=== PATIENT | male | born 1990 | race Caucasian/White ===

== ENCOUNTER 2024-08-24 08:03 | Emergency (ER) | payer OTHER, SELFPAY ==
[2024-08-24] VITALS (7 sets, daily range): BP systolic 129–144; BP diastolic 66–84; PULSE 38–59; RESP 10–23; TEMP 36.6–36.7; O2SAT 96–98; BMI 39.9
--- NOTE | 2024-08-24 08:18 | EX.ED.DYSGE1 ---
HPI History of Present Illness Chief Complaint: Chest Pain Informant: patient Onset/Context/Timing Onset: Today Context: Sudden Onset Timing: Continuous Quality: Tightness Location: Epigastric and lower substernal area Worsened by: Nothing Relieved by: Stretching Narrative Narrative: Patient presents with epigastric abdominal pain and lower chest pain that began this morning. Patient states it was there when he woke up today. Patient describes it as tightness. Patient states it is over the epigastric and lower substernal area. Patient states it did get somewhat better when he was able to stretch. Patient states nothing makes it worse. Patient admits to some subjective fevers and sweats. Patient also admits to some nausea and vomiting. Patient also admits to some shortness of breath. Patient denies any back pain. PFSH PFSH Medical History no medical history no medical history Home Medications ?Medication ?Instructions ?Recorded ?Last Taken ?Type hydrocodone-acetaminophen 5-325mg 1 tab PO Q6H PRN PRN Pain 3 days 08/24/24 Unknown Rx 5mg-325mg #10 TABLETS Allergy/AdvReac Type Severity Reaction Status Date / Time No Known Allergies Allergy Verified 08/24/24 08:06 Surgical History no surgical history no surgical history Social History (Updated 08/24/24 @ 08:[address] Justin Ochoa, DO) Smoking Status: Former smoker Smokeless tobacco user: snuff ROS ROS ED Constitutional Constitutional ED: Reports fever(s), subjective and sweats; Denies chills Eyes Eyes: Denies blurry vision or change in vision ENT ENT ED: Denies rhinorrhea or sore throat Cardiovascular Cardiovascular: Denies chest pain or palpitations Respiratory/Chest Respiratory/Chest: Reports dyspnea; Denies cough Gastrointestinal Gastrointestinal: Reports nausea and vomiting Genitourinary Genitourinary ED: Denies dysuria or hematuria Musculoskeletal Musculoskeletal: Denies back pain or neck pain Integumentary Denies abscess or rash Neurologic Neurologic: Denies headache(s) or weakness Allergic/Immunologic Allergic/Immunologic ED: Denies mouth swelling or urticaria EXAM Physical Exam Const Vital Signs: 08/24/24 08:04 08/24/24 08:10 08/24/24 09:04 Temperature 97.8 F Temperature Source Oral Pulse Rate 48 L 38 L Respiratory Rate 18 18 Respiratory Effort Normal Blood Pressure 129/66 H 133/68 H Blood Pressure Mean 87 89 Pulse Ox 97 97 Oxygen Delivery Method Room Air Room Air 08/24/24 10:01 08/24/24 11:00 08/24/24 12:00 Temperature Temperature Source Pulse Rate 48 L 42 L 46 L Respiratory Rate 10 L 21 H 20 H Respiratory Effort Blood Pressure 138/71 H 140/78 H Blood Pressure Mean 89 95 Pulse Ox 96 98 96 Oxygen Delivery Method 08/24/24 12:09 Temperature 98.1 F Temperature Source Pulse Rate 46 L Respiratory Rate 20 H Respiratory Effort Blood Pressure 140/78 H Blood Pressure Mean 98 Pulse Ox 96 Oxygen Delivery Method Positive well nourished and well developed General Appearance ED: well developed and NAD HEENT Reports moist mucous membranes Neck supple and no JVD Chest Wall inspection of chest normal and palpation of chest normal Resp normal respiratory effort and clear to auscultation bilaterally Cardio regular rhythm Rate: bradycardia GI non-distended Palpation: soft and tender epigastric Neuro oriented x3, CN's II-XII intact bilaterally and no sensory deficits noted Sensorium / Orientation: alert Motor Exam: strength 5/5 throughout Psych mental status grossly normal MDM MDM MDM Narrative Medical decision making narrative: Differential diagnosis includes cardiac dysrhythmia, cardiac ischemia, pneumonia, bronchitis, electrolyte abnormality, gastroesophageal reflux disease, pancreatitis, gastritis, peptic ulcer disease, cholecystitis, cholelithiasis, and anxiety. EKG will be obtained to assess for cardiac dysrhythmia and cardiac ischemia. Chest x-ray will be obtained to assess for pneumonia and bronchitis. CBC will be obtained to assess for leukocytosis and anemia. Comprehensive metabolic profile will be obtained to assess for hepatic function, renal function, and electrolyte abnormality. Lipase will be obtained to assess for pancreatitis. High-sensitivity troponin will be obtained to assess for cardiac ischemia. 2-hour repeat high-sensitivity troponin will be obtained to assess for ongoing cardiac ischemia. Lab Data Attestation: I reviewed the patient's lab results. Lab results narrative: CBC was reviewed. There is a mild leukocytosis of 13.9. The remainder is within normal limits. Comprehensive metabolic profile was reviewed. Glucose was mildly elevated at 194. The remainder is within normal limits. Lipase was reviewed and was normal at 15. Initial high-sensitivity troponin was reviewed and was less than 6. 2-hour repeat high-sensitivity troponin was reviewed and was less than 6. Labs: Laboratory Results - last 24 hr 08/24/24 08/24/24 08:12 11:18 WBC 13.9 H RBC 5.56 Hgb 16.0 Hct 47.0 MCV 84.5 MCH 28.8 MCHC 34.0 RDW Std Deviation 38.5 RDW Coeff of Alexa 12.6 Plt Count 318 MPV 9.8 Immature Gran % (Auto) 0.600 Neut % (Auto) 83.9 H Lymph % (Auto) 11.0 L [place] % (Auto) 4.1 Eos % (Auto) 0.1 Baso % (Auto) 0.3 Absolute Neuts (auto) 11.7 H Absolute Lymphs (auto) 1.53 Nucleated RBC % 0 Sodium 140 Potassium 4.5 Chloride 104 Carbon Dioxide 25.7 Anion Gap 10 BUN 18 Creatinine 0.93 Estim Creat Clear Calc 166.05 Est GFR (MDRD) Non-Af 113 BUN/Creatinine Ratio 19.0 Glucose 194 H Calcium 9.7 Total Bilirubin 0.44 AST 24 ALT 28 Alkaline Phosphatase 78 Troponin T High Sens < 6 Troponin T Hi Sens 2 Hr < 6 Total Protein 7.4 Albumin 4.2 Globulin 3.2 Albumin/Globulin Ratio 1.3 Lipase 15 Radiography Chest X-Ray - ED: 1 View, Read by ED Physician, Read by Radiologist and No Acute Disease Diagnostic Testing: Clinical Impression(s) from Imaging Studies Chest X-Ray 08/24/24 08:23 IMPRESSION: No acute cardiopulmonary process Reading Location: [facility] Chest CTA 08/24/24 09:43 IMPRESSION: No PE. Heart strain. A 2.5 cm left renal nodule should probably be regarded as benign if there is no cancer history Reading Location: [facility] Abdomen/Pelvis CT 08/24/24 12:29 IMPRESSION: 1.8 cm well-defined hypodense nodule in the crux of the left adrenal gland as described. This most likely represents a small adenoma. Reading Location: [facility] Portable 1 view chest x-ray was obtained. On my independent interpretation, lung edwards are clear. There is normal cardiac silhouette. Bony thorax is normal. There is no acute process noted. Radiologist also interpreted the x-ray and agrees. CTA of the chest was obtained. There is no evidence of pulmonary embolism. There is no evidence of right heart strain. There is no evidence of aortic dissection. There is a 2.5 cm left adrenal nodule that is likely benign. This was interpreted by the radiologist and was also independently reviewed by myself. EKG Initial EKG: Attestation: I personally reviewed and interpreted this EKG as follows: Interpretation: Sinus Bradycardia (49) Comments: EKG was obtained. On my independent interpretation, it showed a sinus bradycardia with a rate of 49. AK interval, QRS interval, and QTc intervals were all normal. [place] was normal. There are no acute ST or T wave changes. Prior EKG tracings: not available for review Prior: No Prior Treatment and Re-Evaluation :: Patient was given IV fluids, morphine, and Zofran. Patient was given a repeat dose of morphine. Patient states morphine helped his pain but it came back. Patient was given a dose of Kechi. Patient was advised of his findings. Patient has a HEART score of 0. Patient was advised that this is low risk for acute cardiac event. Patient was given a prescription for Kechi. Patient was instructed to follow-up with his primary care physician in 3 to 5 days. Patient was instructed to return if worse in any way. Patient understood and was agreeable with the plan. All questions were answered. Upon discharge, patient and family were concerned that there could be something in the abdomen that could be causing his pain. They requested a CT scan of the abdomen be obtained. This was ordered. CT scan of the abdomen pelvis was obtained without contrast. There is no acute abnormality noted. Aorta was normal in caliber. There is no free air or free fluid. This was interpreted by the radiologist and was also independently reviewed by myself. Patient was advised of his findings. Patient was instructed to follow-up with his primary care physician in 3 to 5 days. Patient was instructed to return if worse in any way. Patient and family understood and were agreeable with the plan. All questions were answered. Discharge Plan Triage Chief Complaint: Chest Pain Other Complaint: Abd Pain ED Provider: Justin Ochoa Dx/Rx/DC Orders Clinical Impression: Epigastric abdominal pain, Chest pain Instructions: ED Chest Pain, Uncertain Cause, ED Abdominal Pain Unkn Cause Male... Prescriptions: New hydrocodone-acetaminophen 5-325 mg tablet 1 tab PO Q6H PRN PRN (Reason: Pain) 3 Days Qty: 10 0RF Stand Alone Forms: ED Work / School Excuse Primary Care Provider: Care Physician,No Primary Referrals: NOT,DEFINED [Non-Staff] - 3-5 Days Print Language: [place] Disposition Disposition: Home, Self Care
--- NOTE | 2024-08-24 08:23 | RAD_ITS ---
PROCEDURE: CHEST 1 VIEW (PORTABLE) 08/24/2024 REASON FOR EXAM: CHEST PAIN Epigastric pain. Nausea. TECHNIQUE: Frontal view of the chest. COMPARISON: None. FINDINGS: Hardware: None. Heart: Normal size. Lungs: Clear. Bones: Unremarkable. Other: RAD/Chest 1 View (Portable) IMPRESSION: No acute cardiopulmonary process Reading Location: [facility]
--- NOTE | 2024-08-24 08:23 | EKG12_ITS ---
Test Reason : HR Blood Pressure : */* mmHG Vent. Rate : 49 BPM Atrial Rate : 49 BPM P-R Int : 130 ms QRS Dur : 96 ms QT Int : 444 ms P-R-T Axes : 38 22 22 degrees QTcB Int : 401 ms Sinus bradycardia Otherwise normal ECG Confirmed by Dino Tsang ([id number]), editor map MAYA COLE ([id number]) on 08/29/2024 11:30:46 AM Referred By: Confirmed By: Dino Tsang
[2024-08-24] MEDS: Morphine 4 MG/ML Syringe IV ×2 (08:29→09:50)
[2024-08-24] MEDS: 0.9% Normal Saline (1000mL) 1,000 ML 1000 ML IV (08:29)
[2024-08-24] MEDS: Ondansetron 4 MG/2 ML Vial IV (08:29)
[2024-08-24 08:35] LABS: Absolute Lymphocyte Count 1.53 X10^3/uL (0.83-4.51); Absolute Neutrophil Count 11.7 X10^3/uL (2.0-7.7); Basophil# 0.04 X10^3/uL; Basophil% 0.3 % (0-1); Eosinophil# 0.02 X10^3/uL; Eosinophils% 0.1 % (0-5); Lymphocyte # 1.53 X10^3/ul (0.83-4.51); Mean Corpuscular Hgb 28.8 pg (27.0-32.0); Mean Corpuscular Volume 84.5 fL (80-94); Mean Platelet Vol. 9.8 fl (6.2-12.0); Monocyte# 0.57 X10^3/uL; Monocyte% 4.1 % (0-10); NRBC Flagged by Analyzer 0 % (0-5); Neutrophil # 11.66 X10^3/uL (2.7-7.7); Neutrophil % 83.9 % (47-70); Platelet Count 318 K/mm3 (150-450); RBC Distribution Width CV 12.6 % (11.6-14.6); RBC Distribution Width SD 38.5 fl (35.1-43.9); Red Blood Count 5.56 M/mm3 (4.6-6.2); White Blood Count 13.9 K/mm3 (4.4-11.0)
--- OUTSIDE RECORDS SUMMARY | 2024-08-24 08:57 | XMS RPT_ITS | CCD ---
Author Organization [facility] Care Team Providers Care Home Worker Name Role Phone Kenyon Gar Unavailable Mckinley Davis Unavailable Unavailable NONE, NONE Primary Care Unavailable KENYON DURHAM Consulting Unavailable KENYON DURHAM Admitting Unavailable KENYON DURHAM Attending Unavailable KEYANA PHELAN Consulting Unavailable Obdulio Schultz [phone] Consulting U navailable NONE, NONE Consulting Unavailable KAYA SMITH Admitting Unavailable KAYA SMITH Attending Unavailable NORBERTO, Primary Care Unavailable Berenice HASSAN Consulting Unavailable KAYA SMITH Consulting Unavailable NORBERTO, Consulting Unavailable Donn OLIVAS MD, Frank A Primary Care Provider Kristan vailable Unavailable Primary Care Provider Unavailabl e Medications Current Medications Medication Drug Class(es) Dates Sig (Normalized) Sig (Original) acetaminophen 325 mg oral capsule (3 sources) acetaminophen 32 5 mg cap Take by mouth. Active Comment on above: Take by mouth. amoxicillin 500 mg oral capsule (1 source) Penicillin-class Antibacterial Start: 02-22-2024 End: 03-03-2024 take 1 capsule by mouth twice daily amoxicillin (AMOXIL) 500 mg capsule Indications: Strep throat Take 1 capsule by mouth two times a day for 10 days. 20 capsule 02/22/2024 03/03/2024 Active predniSONE 10 mg oral tablet (2 sources) Start: 06-21-2022 End: 07-03-2022 predniSONE (DELTASONE) 10 mg tablet Indications: Poison mikey Take 6 tabs for 3 days, then 4 tabs for 3 days, then 2 tabs for 3 days then 1 tab for 3 days with food. 39 tablet 0 06/21/2022 07/03/2022 Active Start: 02-20-2022 End: 02-24-2022 take 2 tablets by mouth once daily at mealtime predniSONE (DELTASONE) 20 mg tablet Indications: Rash Take 2 tablets by mouth once daily for 4 days. Take daily with food. 8 tablet 0 02/20/2022 02/24/2022 Active Comment on above: Take 2 tablets by mo ut once daily for 4 days. Take daily with food. Take 6 tabs for 3 da ys, then 4 tabs for 3 days, then 2 tabs for 3 days then 1 tab for 3 days with food. triamcinolone acetonide 0.25 mg/ml topical cream (4 sources) Corticosteroid Start: 02-20-2022 End: 06-21-2022 triamcinolone (KENALOG) 0.025 % cream Indications: Poison mikey Apply 1 application to affected area twice daily. 30 g 06/21/2022 Active Comment on above: Apply 1 application to affected area twice daily. Problems Active Problems Problem Classification Problem Date Documented Da te Episodic/Chronic Allergic reactions (1 source) Contact dermatitis due to poison mikey; Translations: [Allergic contact dermatitis due to plants, except food] Episodic External cause codes: Natural/environment (1 source) Overexertion from prolonged static or awkward postures, initial encounter; Translations: [OVEREXERT PROLNG STAT/AWK PST INIT] Onset: 06-20-2018 External Injury - Place of occurrence (2 sources) Unspecified place or not applicable; Translations: [Other specified sports and athletic area as the place of occurrence of the external cause] Onset: 12-16-2016 External Injury - Struck by; against (1 source) Striking against or struck by other objects, initial encounter; Translations: [STRIKING AGAINST OR STRUCK BY OTHER OBJECTS, INIT ENCNTR] Onset: 12-16-2016 External Injury - Unspecified (2 sources) Activity, other specified; Translations: [Activity, golf] Onset: 12-16-2016 Joint disorders and dislocations; trauma-related (1 source) Loose body in knee, right knee; Translations: [LOOSE BODY IN KNEE RIGHT KNEE] Onset: 07-05-2018 Chronic Joint disorders and dislocations; trauma-related (2 sources) Other tear of medial meniscus, current injury, right knee, initial encounter; Translations: [OTH TEAR MED MENSC CUR RT KNEE INIT] Onset: 07-01-2018 Episodic Other connective tissue disease (1 source) Synovial cyst of popliteal space [Tucker], right knee; Translations: [SYNOVIAL CYST POP SPACE RIGHT KNEE] Onset: 07-05-2018 Episodic Other injuries and conditions due to external causes (2 sources) Other specified injuries of right lower leg, initial encounter; Translations: [OTH SPEC INJURIES RT LOW LEG INIT] Onset: 06-18-2018 Episodic Other non-traumatic joint disorders (1 source) Effusion, right knee; Translations: [EFFUSION RIGHT KNEE] Onset: 07-05-2018 Episodic Other skin disorders (1 source) Eruption; Translations: [Rash and other nonspecific skin eruption] Episodic Other upper respiratory infections (4 sources) Sore throat symptom; Translations: [Acute pharyngitis, unspecified] Episodic Past or Other Problems Problem Classification Problem Date Documented Da te Episodic/Chronic Essential hypertension (1 source) Benign hypertension; Translations: [Essential (primary) hypertension] Onset: 01-05-2017 Resolved: 03-23-2019 03-23-2019 Chronic Residual codes; unclassified (3 sources) Sleep deprivation; Translations: [Sleep deprivation] Onset: 03-23-2019 03-23-2019 Episodic Residual codes; unclassified (1 source) Tobacco use and exposure - finding; Translations: [Tobacco use] Onset: 01-05-2017 Resolved: 03-23-2019 03-23-2019 Episodic Sprains and strains (2 sources) Strain of right quadriceps muscle, fascia and tendon, initial encounter; Translations: [Sprain of deltoid ligament of right ankle, sequela] Onset: 01-05-2017 Resolved: 03-23-2019 03-23-2019 Episodic Superficial injury; contusion (1 source) Superficial foreign body of right little finger, initial encounter; Translations: [SUPERFICIAL FOREIGN BODY OF RIGHT LITTLE FINGER, INIT ENCNTR] Onset: 12-16-2016 Episodic Results Test Name Value Interpretation Reference Range Facil francisy RAJNIon 02-22-2024 CNOV Office Visit (UCWSTR) EDUARDO COLLINS ([id number]) 1990 M Date Time Provider Department 02/22/24 8:45 AM NERY WANG WSTR During your visit today, we recorded the following information about you: Temperature Pulse Respiration Blood pressure 96.9 degrees 82/minute 16/minute 124/80 Weight 138.8 kg Nery Wang APRN.[facility] 02/22/2024 9:10 AM Signed CC: Patient presents with: Nasal Congestion: drainage, fever and sore throat x 2 days HPI: Eduardo Collins is a 34 year old male who presents to the office with complaint of sore throat and fever for a few days. Symptoms are worsening Associated symptoms includes sore throat. Denies wheezing, dyspnea, nausea, vomiting , and diarrhea. Treatments tried include nothing so far. with no relief of symptoms. Sick contacts: unknown. History of asthma, frequent episodes of bronchitis, chronic bronchitis, bronchiectasis or COPD: No Smoker: No Seasonal/environment al allergies: No The ROS is otherwise negative. The patient's pmh, medications, allergies, and past visits are reviewed. PHYSICAL EXAM: BP 124/80 Pulse 82 Temp 36.1 ?C (96.9 ?F) Resp 16 Wt (!) 138.8 kg (306 lb) SpO2 98% BMI 41.50 kg/m? General appearance: alert, cooperative, pleasant, in no acute distress Head: Normocephalic Eyes: EOM's intact, conjunctiva pink and moist, no icterus, sclera white, non-injected Ears: Right ear: External ear/canal- Normal, TM - clear with good landmarks. Left ear: External ear/canal- Normal, TM - clear with good landmarks Oropharynx:moderate erythema, with exudates present Heart: Negative. RRR without obvious murmur, gallop, or rubs. No ectopy. Lungs: clear to auscultation, without rales or wheeze, good air exchange PAST MEDICAL HISTORY Diagnosis Date Obesity, unspecified PAST SURGICAL HISTORY Procedure Laterality Date NONE ALLERGIES Patient has no known allergies. MEDICATIONS amoxicillin (AMOXIL) 500 mg capsule Take 1 capsule by mouth two times a day for 10 days. triamcinolone (KENALOG) 0.025 % cream Apply 1 application to affected area twice daily. (Patient not taking: Reported on 02/22/2024) acetaminophen 325 mg cap Take by mouth. (Patient not taking: Reported on 06/21/2022) FAMILY HISTORY Problem Relation Age of Onset Coronary Artery Disease Mother Coronary Artery Disease Maternal Grandfather Social History Tobacco Use Smoking status: Former Current packs/day: 0.00 Average packs/day: 0.5 packs/day for 2.0 years (1.0 ttl pk-yrs) Types: Cigarettes Start date: 03/14/2015 Quit date: 03/14/2017 Years since quittin.9 Smokeless tobacco: Never Vaping Use Vaping status: Never Used Substance Use Topics Alcohol use: Yes Drug use: No ASSESSMENT/PLAN: 1. Sore throat - ICD9: 462, ICD10: J02.9 (primary diagnosis) - STREP A MOLECULAR (POC) - pos 2. Strep throat - ICD9: 034.0, ICD10: J02.0 - AMOXICILLIN 500 MG CAPSULE Prescription instructions reviewed with patient as applicable. Potential red flag symptoms discussed with the patient. Reviewed appropriate action plan to take if red flag symptoms occur. Patient agreeable to treatment plan. Nery Wang APRN.[employer] ADMINISTRATOR Allergies As of Date: 02/22/2024 (No Known Allergies) Date Reviewed: 02/22/2024 Reviewed by: Gail Patel MA - Fully Assessed Reason for Visit: Nasal Congestion [235] Cmt: drainage, fever and sore throat x 2 days Primary Visit Diagnosis:Sore throat [J02.9] Other Visit Diagnosis:Strep throat [J02.0] Order(s):STREP A MOLECULAR (POC) [[id number]] Order #: [id number]. #:[id number] amoxicillin (AMOXIL) 500 mg capsuleTake 1 capsule by mouth two times a day for 10 days.Disp: 20 capsuleRfl: 0 Prescriptions as of 02/22/2024 - amoxicillin (AMOXIL) 500 mg capsule Take 1 capsule by mouth two times a day for 10 days. - triamcinolone (KENALOG) 0.025 % cream Apply 1 application to affected area twice daily. - acetaminophen 325 mg cap Take by mouth. Problem List As Of Date 02/22/2024 Noted Resolved Sprain, ankle joint, medial, right, sequela [S9*01/05/2017 03/23/2019 Tobacco use [Z72.0] 01/05/2017 03/23/2019 Benign hypertension [I10] 01/05/2017 03/23/2019 Sleep deprivation [Z72.820] 03/23/2019 Prescriptions ordered this encounter Disp Refills Start End AMOXICILLIN 500 MG CAPSULE 20 c* 0 02/22/2024 03/03/2024 Route: ORAL Sig: Take 1 capsule by mouth two times a day for 10 days. Letter Text Encounter Status:Closed by NERY WANG on 02/22/24 Normal [facility] STREP A MOLECULAR (POC)on Interpretation and review of laboratory results Abnormal [facility] Procedural Control Valid [facility] Strep A (POCT) Positive Abnormal Negative [facility] STREP A MOLECULAR (POC)on Procedural Control Valid [facility] Strep A (POCT) Negative Negative [facility] MRI LOWER EXTREMITY JOINT RI GHT W/Oon 07-03-2018 MRI LOWER EXTREMITY JOINT RIGHT W/O CLINICAL HISTORY: Right knee injury, approximately 2 weeks ago, with popping sensation. Right knee pain, medially. Evaluate for medial meniscal tear. MRI RIGHT KNEE WITHOUT CONTRAST: TECHNIQUE: Axial STIR, coronal PD fat-saturated, sagittal PD fat-saturated, sagittal T1, and T2 images were obtained through the right knee. FINDINGS: Patellofemoral compartment: Moderate bone contusion is noted in the anterolateral aspect of the lateral femoral condyle. There is also an osteochondral injury in the inferomedial margin of the patella, with an approximately 12 mm x 10 mm high-grade chondral defect and moderate subchondral bone edema, and these findings are consistent with recent transient lateral patellar dislocation. There is a full-thickness tear of the medial patellofemoral ligament from its insertion onto the medial femoral condyle. Low-grade articular cartilage loss is scattered throughout the remainder of the patella. The trochlear cartilage appears intact. Medial compartment: The medial meniscus and medial compartment cartilage are intact. Lateral compartment: The lateral meniscus and lateral compartment cartilage are intact. The popliteus tendon and posterolateral corner are intact. Intercondylar notch: The cruciate ligaments are intact. Collateral ligaments: Full-thickness tear/grade 3 sprain is suspected in the distal aspect of the MCL, with marked edematous thickening and tortuous contour of the MCL. The iliotibial band, lateral collateral ligament and biceps femoris tendon are intact. A moderate knee joint effusion is present, with a couple of adjacent 9 mm and 12 mm linear foci of hypointense T2 signal consistent with chondral intra-articular loose bodies in the medial patellofemoral recess, anterior to the medial aspect of the medial femoral condyle (sagittal T2 images 21 and 22). A large 5.9 cm x 5.1 cm x 2 cm Tucker's cyst is noted, surrounded by some mild soft tissue edema. IMPRESSION: 1. Findings consistent with recent transient lateral patellar dislocation, with a moderate bone contusion in the anterolateral aspect of the lateral femoral condyle and an osteochondral injury in the inferomedial patella, with an approximately 12 mm high-grade chondral defect and moderate subchondral bone edema. Full-thickness tear of the medial patellofemoral ligament from its insertion onto the medial femoral condyle. 2. Full-thickness tear/grade 3 sprain is suspected in the distal aspect of the MCL, with marked edematous thickening and tortuous contour of the MCL. 3. Moderate knee joint effusion, with a couple of adjacent 9 mm and 12 mm chondral intra-articular loose bodies in the medial-most patellofemoral recess. 4. Large 5.9 cm Tucker's cyst. 5. No meniscal tear. Intact cruciate ligaments and lateral collateral ligament complex. Normal [facility] KNEE RIGHTon 06-18-2018 KNEE RIGHT KNEE RIGHT 06/18/2018 5:21 PM EDT Indication: Unspecified fall Technique: AP and crosstable lateral radiographs of the right knee were obtained. Comparison: None. Findings: Visualized osseous structures are normal in alignment and mineralization. No fractures noted. No joint destruction or dislocation. Small knee joint effusion noted. There is mild prepatellar soft tissue edema. Impression: 1. No fractures. 2. Small knee joint effusion and mild prepatellar soft tissue edema. Cannot exclude soft tissue injury to the knee joint. If painful symptoms persist or there is suggestion of significant knee joint instability, consider MRI assessment. Normal [facility] Vital Signs Date Time Vital Sign Value Performing Clinician Mateo paris 02-22-2024 08:46-0500 Body mass index (BMI) [Ratio] 41.5 kg/m2 Nery Wang APRN.CNP Work Phone: [facility] 02-22-2024 08:46-0500 Body temperature 96.91 [degF] Nery Wang WORKERS COMPENSATION LEGAL SECRETARY.[employer] ADMINISTRATOR Work Phone: [facility] 02-22-2024 08:46-0500 Body weight 138.8 kg Nerykalyan Wang WORKERS COMPENSATION LEGAL SECRETARY.[employer] ADMINISTRATOR Work Phone: [facility] 02-22-2024 08:46-0500 Diastolic blood pressure 80 mm[Hg] Nery Wang WORKERS COMPENSATION LEGAL SECRETARY.[employer] ADMINISTRATOR Work Phone: [facility] 02-22-2024 08:46-0500 Heart rate 82 /min Nery Wang WORKERS COMPENSATION LEGAL SECRETARY.[employer] ADMINISTRATOR Work Phone: [facility] 02-22-2024 08:46-0500 Respiratory rate 16 /min Nerykalyan Wang WORKERS COMPENSATION LEGAL SECRETARY.[employer] ADMINISTRATOR Work Phone: [facility] 02-22-2024 08:46-0500 SaO2% (BldA) [Mass fraction] 98 % Nery Wang WORKERS COMPENSATION LEGAL SECRETARY.[employer] ADMINISTRATOR Work Phone: [facility] 02-22-2024 08:46-0500 Systolic blood pressure 124 mm[Hg] Nery Wang WORKERS COMPENSATION LEGAL SECRETARY.[employer] ADMINISTRATOR Work Phone: [facility] 06-21-2022 11:43-0400 Body temperature 96.91 [degF] Charlene Praisler-Wood WORKERS COMPENSATION LEGAL SECRETARY.[employer] ADMINISTRATOR Work Phone: [facility] 06-21-2022 11:43-0400 Body weight 139.71 kg Charlene Praisler-Wood WORKERS COMPENSATION LEGAL SECRETARY.[employer] ADMINISTRATOR Work Phone: [facility] 06-21-2022 11:43-0400 Diastolic blood pressure 80 mm[Hg] Charlene Praisler-Wood WORKERS COMPENSATION LEGAL SECRETARY.[employer] ADMINISTRATOR Work Phone: [facility] 06-21-2022 11:43-0400 Heart rate 68 /min Charlene Praisler-Wood WORKERS COMPENSATION LEGAL SECRETARY.[employer] ADMINISTRATOR Work Phone: [facility] 06-21-2022 11:43-0400 Respiratory rate 16 /min Charlene Praisler-Wood WORKERS COMPENSATION LEGAL SECRETARY.[employer] ADMINISTRATOR Work Phone: [facility] 06-21-2022 11:43-0400 SaO2% (BldA) [Mass fraction] 97 % Charlene Praisler-Wood WORKERS COMPENSATION LEGAL SECRETARY.[employer] ADMINISTRATOR Work Phone: [facility] 06-21-2022 11:43-0400 Systolic blood pressure 128 mm[Hg] Charlene Praisler-Wood WORKERS COMPENSATION LEGAL SECRETARY.[employer] ADMINISTRATOR Work Phone: [facility] 02-20-2022 19:34-0500 Body temperature 98.6 [degF] Charlene Praisler-Wood WORKERS COMPENSATION LEGAL SECRETARY.[employer] ADMINISTRATOR Work Phone: [facility] 02-20-2022 19:34-0500 Body weight 141.52 kg Charlene Praisler-Wood WORKERS COMPENSATION LEGAL SECRETARY.[employer] ADMINISTRATOR Work Phone: [facility] 02-20-2022 19:34-0500 Diastolic blood pressure 86 mm[Hg] Charlene Praisler-Wood WORKERS COMPENSATION LEGAL SECRETARY.[employer] ADMINISTRATOR Work Phone: [facility] 02-20-2022 19:34-0500 Heart rate 74 /min Charlene Praisler-Wood WORKERS COMPENSATION LEGAL SECRETARY.[employer] ADMINISTRATOR Work Phone: [facility] 02-20-2022 19:34-0500 Respiratory rate 18 /min Charlene Praisler-Wood WORKERS COMPENSATION LEGAL SECRETARY.[employer] ADMINISTRATOR Work Phone: [facility] 02-20-2022 19:34-0500 SaO2% (BldA) [Mass fraction] 97 % Charlene Praisler-Wood WORKERS COMPENSATION LEGAL SECRETARY.[employer] ADMINISTRATOR Work Phone: [facility] 02-20-2022 19:34-0500 Systolic blood pressure 128 mm[Hg] Charlene Praisler-Wood WORKERS COMPENSATION LEGAL SECRETARY.[employer] ADMINISTRATOR Work Phone: [facility] Encounters Encounter Date Encounter Type Care Provider Facility Start: 02-22-2024 End: 02-22-2024 ambulatory Facility:[facility] Start: 02-22-2024 End: 02-22-2024 Patient encounter procedure Nery Wang APRN.[employer] ADMINISTRATOR Work Phone: [facility] Comment on above: Sore throat (Primary Dx); Strep throat Start: 06-21-2022 End: 06-21-2022 Patient encounter procedure Charlene CamejoAdán WORKERS COMPENSATION LEGAL SECRETARY.[employer] ADMINISTRATOR Work Phone: [facility] Comment on above: Poison mikey (Primary Dx) Start: 02-20-2022 End: 02-20-2022 Patient encounter procedure Charlene Martin WORKERS COMPENSATION LEGAL SECRETARY.[employer] ADMINISTRATOR Work Phone: [facility] Comment on above: Sore throat (Primary Dx); Rash; Viral URI with cough Start: 07-01-2018 End: 07-02-2018 Patient encounter procedure KAYA SMITH Facility:[facility] Start: 06-18-2018 End: 06-18-2018 Patient encounter procedure NONE NONE Facility:[facility] Start: 10-07-2015 End: 10-07-2015 Emergency department patient visit Kenyon Gar Facility:[facility] Procedures Date Procedure Procedure Detail Performing Clinician Start: 02-22-2024 STREP A MOLECULAR (POC) Tracy Lagos PA-C Work Phone: Start: 02-20-2022 STREP A MOLECULAR (POC) Nery Wang APRN.[employer] ADMINISTRATOR Work Phone: Plan of Treatment Date Care Activity Detail Author Start: 08-25-2027 Urine microalbumin profile [facility] Start: 11-07-2023 Covid-19 Vaccine ( season) Covid-19 Vaccine ( season) [facility] Start: 11-07-2023 Influenza vaccination Influenza Vacc ine (#1) [facility] Start: 11-06-2022 Influenza vaccination INFLUENZA (Sea son Ended) [facility] Start: 03-08-2022 DEPRESSION ASSESSMENT DEPRESSION ASS ESSMENT [facility] Start: 11-06-2021 Influenza vaccination INFLUENZA (#1) [facility] Start: 03-08-2021 DEPRESSION ASSESSMENT DEPRESSION ASS ESSMENT [facility] Start: 02-08-2011 Hepatitis B Vaccine (1 of 3 - 19+ 3-dose series) Hepatitis B Vaccine (1 of 3 - 19+ 3-dose series) [facility] Start: 02-08-2010 Anxiety Screening Anxiety Screening [facility] Start: 02-08-2010 Depression Screening Depression Scre ening [facility] Start: 02-08-2010 HEPATITIS C SCREENING HEPATITIS C [facility] Start: 02-08-2010 Hepatitis C screening Hepatitis C [facility] Start: 02-08-2010 HIV SCREENING HIV SCREENING [facility] Start: 02-08-2010 HIV screening HIV Screening [facility] Start: 1992 COVID-19 VACCINE (#1) COVID-19 VACCI NE (#1) [facility] Start: 1992 HEPATITIS B (1 of 3 - 3-dose series) HEPATITIS B (1 of 3 - 3-dose series) [facility] Immunizations Immunization Date Immunization Notes Care Provider Yudelka pittman 03-14-2019 influenza virus vaccine, unspecified formulation Nery Wang APRN.[facility] Work Phone: [facility] 08-24-2017 tetanus toxoid, redu elma diphtheria toxoid, and acellular pertussis vaccine, adsorbed Charlene Praisler-Wood WORK[employer] COMPENSATION LEGAL SECRETARY.[facility] Work Phone: [facility] 05-11-2007 tetanus toxoid, redu elma diphtheria toxoid, and acellular pertussis vaccine, adsorbed Charlene Praisler-Wood WORKERS COMPENSATION LEGAL SECRETARY.[facility] Work Phone: [facility] Work Phone: 1997 diphtheria, tetanus toxoids and acellular pertussis vaccine Charlene Praisler-Wood WORKERS COMPENSATION LEGAL SECRETARY.[facility] Work Phone: [facility] Work Phone: 1997 measles, mumps and rubella virus vaccine Charlene Praisler-Wood WORKERS COMPENSATION LEGAL SECRETARY.[employer] ADMINISTRATOR Work Phone: [facility] Work Phone: 1997 poliovirus vaccine, inactivated Charlene Praisler-Wood WORKERS COMPENSATION LEGAL SECRETARY.[facility] Work Phone: [facility] Work Phone: 05-22-1993 diphtheria, tetanus toxoids and acellular pertussis vaccine Charlene Praisler-Wood WORKERS COMPENSATION LEGAL SECRETARY.[facility] Work Phone: [facility] Work Phone: 05-22-1993 haemophilus influenz ae type b vaccine, conjugate unspecified formulation Charlene Praisler-Wood WORKERS COMPENSATION LEGAL SECRETARY.[facility] Work Phone: [facility] 05-22-1993 measles, mumps and rubella virus vaccine Charlene Sayaileen-Wood WORKERS COMPENSATION LEGAL SECRETARY.[employer] ADMINISTRATOR Work Phone: [facility] Work Phone: 05-22-1993 poliovirus vaccine, inactivated Charlene Praisler-Wood WORKERS COMPENSATION LEGAL SECRETARY.[facility] Work Phone: [facility] Work Phone: 1992 diphtheria, tetanus toxoids and acellular pertussis vaccine Charlene Praisler-Wood WORKERS COMPENSATION LEGAL SECRETARY.[facility] Work Phone: [facility] Work Phone: 1992 haemophilus influenz ae type b vaccine, conjugate unspecified formulation Charlene Dealisler-Wood WORKERS COMPENSATION LEGAL SECRETARY.[facility] Work Phone: [facility] Work Phone: 1992 hepatitis B immune globulin Charlene Feliz-Adán WORKERS COMPENSATION LEGAL SECRETARY.[employer] ADMINISTRATOR Work Phone: [facility] Work Phone: 1992 diphtheria, tetanus toxoids and acellular pertussis vaccine Charlene Praisler-Wood WORKERS COMPENSATION LEGAL SECRETARY.[facility] Work Phone: [facility] Work Phone: 1992 haemophilus influenz ae type b vaccine, conjugate unspecified formulation Charlene Feliz-Wood WORKERS COMPENSATION LEGAL SECRETARY.[employer] ADMINISTRATOR Work Phone: [facility] Work Phone: 1992 poliovirus vaccine, inactivated Charlene Praisannmarie-Wood WORKERS COMPENSATION LEGAL SECRETARY.[employer] ADMINISTRATOR Work Phone: [facility] Work Phone: 1990 diphtheria, tetanus toxoids and acellular pertussis vaccine Charlene Praisler-Wood WORK[employer] COMPENSATION LEGAL SECRETARY.[employer] ADMINISTRATOR Work Phone: [facility] Work Phone: 1990 haemophilus influenz ae type b vaccine, conjugate unspecified formulation Charlene Praisler-Wood WORK[employer] COMPENSATION LEGAL SECRETARY.[employer] ADMINISTRATOR Work Phone: [facility] Work Phone: 1990 poliovirus vaccine, inactivated Charlene Martin WORKERS COMPENSATION LEGAL SECRETARY.[employer] ADMINISTRATOR Work Phone: [facility] Work Phone: 1990 hepatitis B immune globulin Charlene Martin WORKERS COMPENSATION LEGAL SECRETARY.[employer] ADMINISTRATOR Work Phone: [facility] Work Phone: 1990 hepatitis B immune globulin Charlene Martin WORKERS COMPENSATION LEGAL SECRETARY.[employer] ADMINISTRATOR Work Phone: [facility] Work Phone: Payers Date Payer Category Payer Unknown [id number] 2021 Unknown [id number] 1992 Unknown [id number] 1992 Unknown [id number] 1959 Unknown [id number] Unknown [id number] Social History Date Type Detail Facility Start: 03-14-2019 End: 06-21-2022 Tobacco smoking status NHIS Ex-smoker [facility] Start: 03-14-2015 End: 03-14-2017 History of tobacco use Current smoker [facility] Start: 03-14-2015 End: 03-14-2017 History of tobacco use Cigarette Smoker [facility] Start: 03-14-2019 End: 02-13-2020 Cigarettes smoked current (pack per day) - Reported 0.5 [facility] Start: 03-14-2019 End: 06-21-2022 Tobacco use and exposure Smokeless tobacco non-user [facility] Start: 02-20-2022 End: 06-21-2022 Alcohol intake Current drinker of alcohol (finding) [facility] Start: 1990 Sex Assigned At Not on file [facility] Start: 02-13-2020 End: 06-21-2022 Tobacco use panel [facility] National Score (1-10 0), lower number is lower risk Not on file [facility] Clinical Notes 01-05-2017 to 02-22-2024 Nery Wang APRN.SALTY - 02/22/2024 8:49 AM ESTCharlene Martin APRN.CNP - 06/21/2022 11:57 AM EDTPatient InstructionsPatient InstructionsCharlene Martin APRN.SALTY - 02/20/2022 7:41 PM EST Note Date & Type Note Facility 02-22-2024 Note HNO ID: [id number] Author: NERY WANG APRN.SALTY Service: ? Author Type: Nurse Practitioner Type: Progress Notes Filed: 02/22/2024 09:10 Note Text: CC: Patient presents with: Nasal Congestion: drainage, fever and sore throat x 2 days HPI: Eduardo Collins is a 34 year old male who presents to the office with complaint of sore throat and fever for a few days. Symptoms are worsening Associated symptoms includes sore throat. Denies wheezing, dyspnea, nausea, vomiting , and diarrhea. Treatments tried include nothing so far. with no relief of symptoms. Sick contacts: unknown. History of asthma, frequent episodes of bronchitis, chronic bronchitis, bronchiectasis or COPD: No Smoker: No Seasonal/environmental allergies: No The ROS is otherwise negative. The patient's pmh, medications, allergies, and past visits are reviewed. PHYSICAL EXAM: BP 124/80 Pulse 82 Temp 36.1 ?C (96.9 ?F) Resp 16 Wt (!) 138.8 kg (306 lb) SpO2 98% BMI 41.50 kg/m? General appearance: alert, cooperative, pleasant, in no acute distress Head: Normocephalic Eyes: EOM's intact, conjunctiva pink and moist, no icterus, sclera white, non-injected Ears: Right ear: External ear/canal- Normal, TM - clear with good landmarks. Left ear: External ear/canal- Normal, TM - clear with good landmarks Oropharynx:moderate erythema, with exudates present Heart: Negative. RRR without obvious murmur, gallop, or rubs. No ectopy. Lungs: clear to auscultation, without rales or wheeze, good air exchange PAST MEDICAL HISTORY Diagnosis Date Obesity, unspecified PAST SURGICAL HISTORY Procedure Laterality Date NONE ALLERGIES Patient has no known allergies. MEDICATIONS amoxicillin (AMOXIL) 500 mg capsule Take 1 capsule by mouth two times a day for 10 days. triamcinolone (KENALOG) 0.025 % cream Apply 1 application to affected area twice daily. (Patient not taking: Reported on 02/22/2024) acetaminophen 325 mg cap Take by mouth. (Patient not taking: Reported on 06/21/2022) FAMILY HISTORY Problem Relation Age of Onset Coronary Artery Disease Mother Coronary Artery Disease Maternal Grandfather Social History Tobacco Use Smoking status: Former Current packs/day: 0.00 Average packs/day: 0.5 packs/day for 2.0 years (1.0 ttl pk-yrs) Types: Cigarettes Start date: 03/14/2015 Quit date: 03/14/2017 Years since quittin.9 Smokeless tobacco: Never Vaping Use Vaping status: Never Used Substance Use Topics Alcohol use: Yes Drug use: No ASSESSMENT/PLAN: 1. Sore throat - ICD9: 462, ICD10: J02.9 (primary diagnosis) - STREP A MOLECULAR (POC) - pos 2. Strep throat - ICD9: 034.0, ICD10: J02.0 - AMOXICILLIN 500 MG CAPSULE Prescription instructions reviewed with patient as applicable. Potential red flag symptoms discussed with the patient. Reviewed appropriate action plan to take if red flag symptoms occur. Patient agreeable to treatment plan. Nery Wang APRN.[facility] 02-22-2024 History of Presen t illness Narrative CC: Patient presents with: Nasal Congestion: drainage, fever and sore throat x 2 days HPI: Eduardo Collins is a 34 year old male who presents to the office with complaint of sore throat and fever for a few days. Symptoms are worsening Associated symptoms includes sore throat. Denies wheezing, dyspnea, nausea, vomiting , and diarrhea. Treatments tried include nothing so far. with no relief of symptoms. Sick contacts: unknown. History of asthma, frequent episodes of bronchitis, chronic bronchitis, bronchiectasis or COPD: No Smoker: No Seasonal/environmental allergies: No The ROS is otherwise negative. The patient's pmh, medications, allergies, and past visits are reviewed. PHYSICAL EXAM: BP 124/80 Pulse 82 Temp 36.1 C (96.9 F) Resp 16 Wt (!) 138.8 kg (306 lb) SpO2 98% BMI 41.50 kg/m General appearance: alert, cooperative, pleasant, in no acute distress Head: Normocephalic Eyes: EOM's intact, conjunctiva pink and moist, no icterus, sclera white, non-injected Ears: Right ear: External ear/canal- Normal, TM - clear with good landmarks. Left ear: External ear/canal- Normal, TM - clear with good landmarks Oropharynx:moderate erythema, with exudates present Heart: Negative. RRR without obvious murmur, gallop, or rubs. No ectopy. Lungs: clear to auscultation, without rales or wheeze, good air exchange PAST MEDICAL HISTORY Diagnosis Date Obesity, unspecified PAST SURGICAL HISTORY Procedure Laterality Date NONE ALLERGIES Patient has no known allergies. MEDICATIONS amoxicillin (AMOXIL) 500 mg capsule Take 1 capsule by mouth two times a day for 10 days. triamcinolone (KENALOG) 0.025 % cream Apply 1 application to affected area twice daily. (Patient not taking: Reported on 02/22/2024) acetaminophen 325 mg cap Take by mouth. (Patient not taking: Reported on 06/21/2022) FAMILY HISTORY Problem Relation Age of Onset Coronary Artery Disease Mother Coronary Artery Disease Maternal Grandfather Social History Tobacco Use Smoking status: Former Current packs/day: 0.00 Average packs/day: 0.5 packs/day for 2.0 years (1.0 ttl pk-yrs) Types: Cigarettes Start date: 03/14/2015 Quit date: 03/14/2017 Years since quittin.9 Smokeless tobacco: Never Vaping Use Vaping status: Never Used Substance Use Topics Alcohol use: Yes Drug use: No ASSESSMENT/PLAN: 1. Sore throat - ICD9: 462, ICD10: J02.9 (primary diagnosis) - STREP A MOLECULAR (POC) - pos 2. Strep throat - ICD9: 034.0, ICD10: J02.0 - AMOXICILLIN 500 MG CAPSULE Prescription instructions reviewed with patient as applicable. Potential red flag symptoms discussed with the patient. Reviewed appropriate action plan to take if red flag symptoms occur. Patient agreeable to treatment plan. Nery Wang APRN.[employer] ADMINISTRATOR documented in this encounter [facility] 06-21-2022 History of Presen t illness Narrative Images from the original note were not included. Subjective Rash Pertinent negatives include no fever, shortness of breath or sore throat. Eduardo Collins is a 32 year old male who presents with poison mikey rash on bilateral arms and right ear and right eye. Also has some on his shoulder and waist. Has been present for a week. States it is very itchy. He has not used any medication at home for this. He has not had a fever. Review of Systems Constitutional: Negative for chills and fever. HENT: Negative for sore throat. Respiratory: Negative for shortness of breath. Cardiovascular: Negative. Musculoskeletal: Negative. Skin: Positive for itching and rash. BP 128/80 Pulse 68 Temp 36.1 C (96.9 F) Resp 16 Wt (!) 139.7 kg (308 lb) SpO2 97% BMI 41.77 kg/m PAST MEDICAL HISTORY Diagnosis Date Obesity, unspecified PAST SURGICAL HISTORY Procedure Laterality Date NONE ALLERGIES Patient has no known allergies. MEDICATIONS predniSONE (DELTASONE) 10 mg tablet Take 6 tabs for 3 days, then 4 tabs for 3 days, then 2 tabs for 3 days then 1 tab for 3 days with food. triamcinolone (KENALOG) 0.025 % cream Apply 1 application to affected area twice daily. acetaminophen 325 mg cap Take by mouth. (Patient not taking: Reported on 06/21/2022) FAMILY HISTORY Problem Relation Age of Onset Coronary Artery Disease Mother Coronary Artery Disease Maternal Grandfather Social History Tobacco Use Smoking status: Former Packs/day: 0.50 Years: 2.00 Pack years: 1.00 Types: Cigarettes Quit date: 03/14/2017 Years since quittin.2 Smokeless tobacco: Never Vaping Use Vaping Use: Never used Substance Use Topics Alcohol use: Yes Drug use: No Objective Physical Exam Vitals and nursing note reviewed. Constitutional: Appearance: Normal appearance. HENT: Head: Ears: Cardiovascular: Rate and Rhythm: Normal rate and regular rhythm. Heart sounds: Normal heart sounds. Pulmonary: Effort: Pulmonary effort is normal. No respiratory distress. Breath sounds: Normal breath sounds. No wheezing or rales. Skin: Neurological: Mental Status: He is alert. ASSESSMENT/PLAN: 1. Poison mikey - ICD9: 692.6, ICD10: L23.7 - Oral Steriod tx -Prednisone taper - Topical steriod tx with Rx for steriod cream/ointment- see orders - discussed skin care of rash - follow up if symptoms persist or worsen. - PREDNISONE 10 MG TABLET - TRIAMCINOLONE ACETONIDE 0.025 % TOPICAL CREAM - Follow-up with your PCP in 3-5 days if symptoms have not improved or sooner if symptoms worsen - Discussed red flags and need for immediate medical evaluation if any occur. - Discussed supportive care treatment with fluids, rest and analgesia. - Discussed expected course of illness Charlene Martin APRN.CNP documented in this encounter [facility] 06-21-2022 Instructions Charlene Martin APRN.CNP - 06/21/2022 11:56 AM EDT ASSESSMENT/PLAN: 1. Poison mikey - ICD9: 692.6, ICD10: L23.7 - Oral Steriod tx -Prednisone taper - Topical steriod tx with Rx for steriod cream/ointment- see orders - discussed skin care of rash - follow up if symptoms persist or worsen. - PREDNISONE 10 MG TABLET - TRIAMCINOLONE ACETONIDE 0.025 % TOPICAL CREAM - Follow-up with your PCP in 3-5 days if symptoms have not improved or sooner if symptoms worsen - Discussed red flags and need for immediate medical evaluation if any occur. - Discussed supportive care treatment with fluids, rest and analgesia. - Discussed expected course of illness Charlene Martin APRN.CNP [facility] PATIENT INFO POISON MIKEY INTRODUCTION When the skin comes in direct contact with an irritating or allergy-causing substance, contact dermatitis can develop. Exposure to poison mikey, poison oak, and poison sumac cause more cases of allergic contact dermatitis than all other plant families combined. People of all ethnicities and skin types are at risk for developing poison mikey dermatitis. The severity of the reaction tends to decrease with age, especially in people who have had mild reactions in the past. People in occupations such as firefighting, forestry, and farming are at a higher risk of poison mikey dermatitis because of repeated exposure to toxic plants. POISON MIKEY CAUSES Poison mikey, poison oak, and poison sumac plants all contain a compound called urushiol, which is a light, colorless oil that is found on the fruit, leaves, stem, root, and sap of the plant. When urushiol is exposed to air, it turns brown and the plant leaves develop small black spots. There are several ways that you can be exposed to urushiol: By touching the sap or rubbing against the leaves of the toxic plant By touching something that has urushiol on it, such as animal fur or garden tools By breathing in smoke when toxic plants are burned Ginkgo fruit and the skin of mangoes also contain urushiol and can produce symptoms similar to poison mikey dermatitis. IDENTIFYING POISON MIKEY Leaves of three, let them be is a phrase often used to identify plants that cause poison mikey dermatitis. Generally, poison mikey and poison oak have three leaves with flowering branches on a single stem. Poison sumac has five, seven, or more leaves that angle upward toward the top of the stem. Some types of poison mikey produce a green or off-white fruit in mimi, and in some cases, black dots form on the plants' leaves. It is not always possible to identify the plant by the leaves alone since the appearance can vary depending upon the season, growth cycle, region, and climate. Poison mikey, oak, and sumac plants grow in many areas across the [facility] and throughout the world. [place] of the [facility], poison mikey commonly grows as a climbing vine. In the [place] area and west, poison mikey tends to grow low to the ground as a shrub. Poison oak most often grows west of the [facility], and poison sumac inhabits boggy areas in the southeastern part of the [facility]. The plants are not usually found in areas at high elevations or in desert climates. POISON MIKEY SIGNS AND SYMPTOMS After contact with urushiol, approximately 50 percent of people develop signs and symptoms of poison mikey dermatitis. The symptoms and severity differ from person to person. The most common signs and symptoms of poison mikey dermatitis are: Intense itching Skin swelling Skin redness These symptoms usually develop within four hours to four days after exposure to the urushiol. After the initial symptoms, you will develop fluid-filled blisters in a line or streak-like pattern. The symptoms are worst within 1 to 14 days after touching the plant, but can develop up to 21 days later if you have never been exposed to urushiol before. The blisters can occur at different times in different people; blisters can develop on the arms several days after blisters on the hands developed. This does not mean that the reaction is spreading from one area of the body to the other. The fluid that leaks from blisters does not cause symptoms. Poison mikey dermatitis is not contagious and cannot be passed from person to person. However, urushiol can be carried under fingernails and on clothes; if another person comes in contact with the urushiol, they can develop poison mikey dermatitis. POISON MIKEY DIAGNOSIS Poison mikey is usually diagnosed based upon how your skin looks. Further testing is not usually necessary. POISON MIKEY TREATMENT Poison mikey dermatitis usually resolves within one to three weeks without treatment. Treatments that may help relieve the itching, soreness, and discomfort caused by poison mikey dermatitis include: Skin treatments -- For some people, adding oatmeal to a bath, applying cool wet compresses, and applying calamine lotion may help to relieve itching. Once the blisters begin weeping fluid, astringents containing aluminum acetate (Jamie's solution) and Domeboro may help to relieve the rash. Antihistamines -- Antihistamines may help to relieve itching caused by poison mikey dermatitis. Some antihistamines make you sleepy while others do not. Antihistamines that make you sleepy (eg, diphenhydramine [Benadryl ]) may be helpful if you have trouble sleeping due to itching. Other formulas (eg, loratadine [Claritin ], cetirizine [Zyrtec ]) may be preferable for daytime. Steroid creams -- Steroid creams may be helpful if they are used during the first few days after symptoms develop. Low potency steroid creams, such as 1 percent hydrocortisone (available in the [place] without prescription) are not usually helpful. A stronger prescription formula may be helpful. Steroids -- If you develop severe symptoms or the rash covers a large area (especially on the face or genitals), you may need steroid pills or injections (eg, prednisone) to help relieve itching and swelling. Pills are usually given for 14 to 21 days, with the dosage slowly decreased over time. Antibiotics -- Skin infections are a potential complication of poison mikey, especially if you scratch your skin. If you develop a skin infection because of poison mikey dermatitis, you may need antibiotics to treat the infection. Other treatments -- An herbal therapy called jewelweed extract has been used to treat poison mikey dermatitis, although it has not been proven effective. You should not use antihistamine creams or lotions, anesthetic creams containing benzocaine, or antibiotic creams containing neomycin or bacitracin to the skin. These creams or ointments could make the rash worse. POISON MIKEY PREVENTION The best way to prevent poison mikey dermatitis is to identify and avoid the plants that cause it. These plants can irritate the skin year round, even during the winter months, and can still cause a reaction years after the plant dies. Wear protective clothing, including long sleeves and pants when working in areas where toxic plants may be found. Keep in mind that the resin and oils from the toxic plants can be carried on clothing, pets, and under fingernails. Wear heavy-duty vinyl gloves when doing yard work or gardening. The oils from toxic plants can seep through latex or rubber gloves. After coming in contact with poison mikey, remove any contaminated clothing and gently wash (do not scrub or rub) you skin and under the fingernails with mild soap and water as soon as possible. Washing within two hours after exposure can reduce the likelihood and severity of symptoms; washing the skin after you have symptoms will not help. Creams and ointments that create a barrier between the skin and the urushiol oil may be somewhat effective for people who are frequently exposed to poison mikey. Bentoquatam (Mikey Block ) is one type of barrier cream that may prevent poison mikey dermatitis. It must be reapplied every four hours and it leaves a elsa residue on the skin. Avoid burning poisonous vegetation, which can disperse the plant particles in the smoke, irritate the skin, and cause poison mikey dermatitis. documented in this encounter [facility] 02-20-2022 Instructions Charlene aMrtin APRN.CNP - 02/20/2022 7:47 PM EST ASSESSMENT/PLAN: 1. Sore throat - ICD9: 462, ICD10: J02.9 (primary diagnosis) - suspect viral - Alere Strep Test NEGATIVE, no culture pending - Discussed supportive care treatment with fluids, rest and analgesia. - STREP A MOLECULAR (POC) 2. Rash - ICD9: 782.1, ICD10: R21 - PREDNISONE 20 MG TABLET - TRIAMCINOLONE ACETONIDE 0.025 % TOPICAL CREAM 3. Viral URI with cough - ICD9: 465.9, ICD10: J06.9 - Discussed viral etiology and rationale for treatment. - Symptomatic treatment with prn analgesia - Supportive care with fluids and rest - offered COVID/flu testing, patient declined. - Follow-up with your PCP in 3-5 days if symptoms have not improved or sooner if symptoms worsen - Discussed red flags and need for immediate medical evaluation if any occur. - Discussed supportive care treatment with fluids, rest and analgesia. - Discussed expected course of illness Charlene Martin APRN.SALTY documented in this encounter [facility] 02-20-2022 History of Presen t illness Narrative Images from the original note were not included. Subjective Rash Associated symptoms include coughing, a fever and a sore throat. Pertinent negatives include no congestion, diarrhea or vomiting. Eduardo Collins is a 32 year old male who presents with a cough, fever and sore throat for the past 5 days and rash on face and body for past 3 days. He rates his sore throat pain 3/10. He has been taking Midol and Tylenol cold and flu. He states the rash is itchy. He has not used any medication for the rash. Review of Systems Constitutional: Positive for chills and fever. HENT: Positive for sore throat. Negative for congestion and ear pain. Respiratory: Positive for cough. Gastrointestinal: Negative for diarrhea and vomiting. Musculoskeletal: Negative for myalgias. Skin: Positive for itching and rash. Neurological: Negative for headaches. BP 128/86 Pulse 74 Temp 37 C (98.6 F) (Tympanic) Resp 18 Wt (!) 141.5 kg (312 lb) SpO2 97% BMI 42.31 kg/m PAST MEDICAL HISTORY Diagnosis Date Obesity, unspecified PAST SURGICAL HISTORY Procedure Laterality Date NONE ALLERGIES Patient has no known allergies. MEDICATIONS acetaminophen (TYLENOL) 325 mg cap Take by mouth. FAMILY HISTORY Problem Relation Age of Onset Coronary Artery Disease Mother Coronary Artery Disease Maternal Grandfather Social History Tobacco Use Smoking status: Former Packs/day: 0.50 Years: 2.00 Pack years: 1.00 Types: Cigarettes Quit date: 03/14/2017 Years since quittin.9 Smokeless tobacco: Never Vaping Use Vaping Use: Never used Substance Use Topics Alcohol use: Yes Drug use: No Objective Physical Exam Vitals and nursing note reviewed. Constitutional: Appearance: He is obese. HENT: Head: Right Ear: Tympanic membrane, ear canal and external ear normal. Left Ear: Tympanic membrane, ear canal and external ear normal. Nose: Nose normal. Mouth/Throat: Mouth: Mucous membranes are moist. Pharynx: Uvula midline. Posterior oropharyngeal erythema present. No oropharyngeal exudate. Tonsils: 1+ on the right. 1+ on the left. Cardiovascular: Rate and Rhythm: Normal rate and regular rhythm. Heart sounds: Normal heart sounds. Pulmonary: Effort: Pulmonary effort is normal. No respiratory distress. Breath sounds: Normal breath sounds. No wheezing or rales. Musculoskeletal: Cervical back: Neck supple. Lymphadenopathy: Cervical: No cervical adenopathy. Skin: General: Skin is warm and dry. Findings: No erythema or rash. Neurological: Mental Status: He is alert. ASSESSMENT/PLAN: 1. Sore throat - ICD9: 462, ICD10: J02.9 (primary diagnosis) - suspect viral - Alere Strep Test NEGATIVE, no culture pending - Discussed supportive care treatment with fluids, rest and analgesia. - STREP A MOLECULAR (POC) 2. Rash - ICD9: 782.1, ICD10: R21 - PREDNISONE 20 MG TABLET - TRIAMCINOLONE ACETONIDE 0.025 % TOPICAL CREAM 3. Viral URI with cough - ICD9: 465.9, ICD10: J06.9 - Discussed viral etiology and rationale for treatment. - Symptomatic treatment with prn analgesia - Supportive care with fluids and rest - offered COVID/flu testing, patient declined. - Follow-up with your PCP in 3-5 days if symptoms have not improved or sooner if symptoms worsen - Discussed red flags and need for immediate medical evaluation if any occur. - Discussed supportive care treatment with fluids, rest and analgesia. - Discussed expected course of illness Charlene Martin APRN.[employer] ADMINISTRATOR documented in this encounter [facility] 01-05-2017 History of Past i llness Narrative Problem Noted Date Resolved Date Sprain, ankle joint, medial, right, sequela 12/0803/23/2019 Tobacco use 01/05/2017 03/23/2019 Benign hypertension 01/05/2017 03/23/2019 documented as of this encounter (statuses as of 02/20/2022) [facility] History of Past illness Narrative* Problem Noted Date Resolved Date Sprain, ankle joint, medial, right, sequela 12/0803/23/2019 Tobacco use 01/05/2017 03/23/2019 Benign hypertension 01/05/2017 03/23/2019 documented as of this encounter (statuses as of 06/21/2022) [facility] Sore throat- Primary Acute pharyngitis Rash Rash and other nonspecific skin eruption Viral URI with cough Acute upper respiratory infections of unspecified site [facility] Poison mikey- Primary Contact dermatitis and other eczema due to plants (except food) [facility] Sore throat- Primary Acute pharyngitis Strep throat Streptococcal sore throat documented in this encounter [facility] Summary Purpose Family History No Family History Records FoundNo Family History Records FoundNo Family History Records Found Advance Directives No Advanced Directives Records FoundNo Advanced Directives Records FoundNo Advanced Directives Records Found Additional Source Comments (unrecognized sect ion and content) No Status Records FoundNo Status Records FoundNo Status Records Found INFORMATION SOURCE (unrecogn ized section and content) DATE CREATED AUTHOR 08/31/2017 [facility] DATE CREATED AUTHOR AUTHOR'S ORGANIZ ATION 07/09/2018 [facility] DATE CREATED AUTHOR AUTHOR'S ORGANIZ ATION 02/24/2024 [facility] Source Comments (unrecognize d section and content) In the event this informatio n is protected by the Federal Confidentiality of Alcohol and Drug Abuse Patient Records regulations: The Federal rules restrict any use of the information to criminally investigate or prosecute any alcohol or drug abuse patient.[facility] the event this information is protected by the Federal Confidentiality of Alcohol and Drug Abuse Patient Records regulations: The Federal rules restrict any use of the information to criminally investigate or prosecute any alcohol or drug abuse patient.[facility] the event this information is protected by the Federal Confidentiality of Alcohol and Drug Abuse Patient Records regulations: The Federal rules restrict any use of the information to criminally investigate or prosecute any alcohol or drug abuse patient.[facility] Reason for Visit (unrecogniz ed section and content) Reason Comments Rash Pt reported rash fac e, torso, fever, throat redness/swelling cough x5 days. Reason Comments Rash all over, itching x 1 week Reason Comments Nasal Congestion drainage, fever and sore throat x 2 days Care Teams (unrecognized sec tion and content) Home Worker Relationship Specialty Start Date End Date Mckinley Pop III, MD NO FORWARDING ADDRESS PCP - General 12/29/01 FOR RECORDS PERTAINING TO PATIENTS WHO ARE OR HAVE BEEN ENROLLED IN A CHEMICAL DEPENDENCY/SUBSTANCEABUSE PROGRAM, SOME INFORMATION MAY BE OMITTED. This clinical summary was aggregated from multiple sources. Caution should be exercised in using it in the provision of clinical care. This summary normalizes information from multiple sources, and as a consequence, information in this document may materially change the coding, format and clinical context of patient data. In addition, data may be omitted in some cases. CLINICAL DECISIONS SHOULD BE BASED ON THE PRIMARY CLINICAL RECORDS. [facility] [employer] [facility]. provides no warranty or guarantee of the accuracy or completeness of information in this document.
[2024-08-24 09:30] LABS: ALB/GLOB Ratio 1.3 RATIO (0.9-2.4); AST(SGOT) 24 U/L (<=37); Alanine Aminotransfer ALT/SGPT 28 U/L (<=46); Albumin, Serum 4.2 g/dL (3.5-5.0); Alkaline Phosphatase 78 U/L (40-129); Anion Gap 10 (5-15); BUN 18 mg/dL (4-19); Calcium,Total 9.7 mg/dL (7.6-11.0); Carbon Dioxide 25.7 mmol/L (21.0-32.0); Chloride 104 mmol/L (98-108); Creatinine, Serum 0.93 mg/dL (0.70-1.20); EST Glomerular Filtration Rate 113 (>60); Estimated Creatinine Clearance 166.05 ml/min (50-250); Globulin 3.2 g/dL (2.2-4.2); Glucose 194 mg/dL (70-99); Lipase 15 U/L (13-75); Potassium 4.5 mmol/L (3.3-5.1); Protein, Total 7.4 g/dL (5.9-8.4); Sodium Level 140 mmol/L (133-145); Total Bilirubin 0.44 mg/dL (0.00-1.30); Troponin T High Sensitivity < 6 ng/L (<=22)
--- NOTE | 2024-08-24 09:43 | CT_ITS ---
PROCEDURE: CTA CHEST W/WO CONTRAST 08/24/2024 REASON FOR EXAM: CHEST PAIN TECHNIQUE: CTA CHEST W/WO CONTRAST Multiplanar Sagittal and Coronal images were obtained. CONTRAST: Isovue 370 VOLUME: 94 mL One or more dose reduction techniques were used (e.g., Automated exposure control, adjustment of the mA and/or kV according to patient size, use of iterative reconstruction technique). RADIATION DOSE SUMMARY: CTDlvol: 42.30 and 22.55 mGy DLP: 759.31 mGycm COMPARISON: None. FINDINGS: Thoracic Aorta: Normal caliber. Heart: Normal size minimal calcified coronary artery plaque. No indication of right heart strain. Pulmonary Vessels: Normal caliber. Hardware: None. Lymph nodes: No adenopathy. Lungs and Airways: Lungs are predominantly clear. Except, mild dependent atelectasis posteriorly. Airways are patent Pleura: No pleural effusion or significant abnormality of the pleura otherwise. Upper Abdomen: A 2.5 cm left adrenal nodule is identified. If there is no history of cancer or history of cancer symptoms, this should probably be regarded as benign Bones: No aggressive lesion. CT/CTA Chest W/WO Contrast IMPRESSION: No PE. Heart strain. A 2.5 cm left renal nodule should probably be regarded as benign if there is no cancer history Reading Location[facility]
[2024-08-24 11:47] LABS: Troponin T High Sens 2 HR < 6 ng/L (<=22)
[2024-08-24] MEDS: HYDROcodone Bitartrate/Apap 5/325 Tablet PO (11:53)
--- NOTE | 2024-08-24 12:29 | CT_ITS ---
PROCEDURE: ABDOMEN/PELVIS WITHOUT CONT 08/24/2024 REASON FOR EXAM: PAIN Epigastric pain and diaphoresis. Recent CT scan of the chest. TECHNIQUE: ABDOMEN/PELVIS WITHOUT CONT Noncontrast technique limits evaluation of the abdominal and pelvic viscera. Coronal and Sagittal reconstruction series were provided. One or more dose reduction techniques were used (e.g., Automated exposure control, adjustment of the mA and/or kV according to patient size, use of iterative reconstruction technique). Dose report: CTDI L volume: 27.89 mGy. DLP: 1628.28 mGy. ORAL CONTRAST TYPE: None. COMPARISON: Prior CT scan of the thorax done earlier in the day. FINDINGS: Lung bases: Mild dependent atelectasis Liver: Normal size. No obvious mass. Gallbladder: Unremarkable Spleen: Normal size. Pancreas: Normal size. No surrounding inflammation. Adrenals: There is a 1.8 cm well-defined hypodense nodule in the crux of the left adrenal gland suggestive of a small adenoma. Kidneys: Contrast is seen within the kidneys from prior CT chest examination. No evidence of hydronephrosis. No evidence of ureteral obstruction. Bladder: Unremarkable Bowel: Unremarkable Appendix: Unremarkable Lymph nodes: Unremarkable. Vasculature: The abdominal aorta and IVC contours are normal. Noncontrast technique limits evaluation. Peritoneum / Retroperitoneum: Unremarkable Bones: Unremarkable CT/Abdomen/Pelvis without Cont IMPRESSION: 1.8 cm well-defined hypodense nodule in the crux of the left adrenal gland as d escribed. This most likely represents a small adenoma. Reading Location: [place] [id number]
--- NOTE | 2024-08-24 13:45 | CM.ED ---
Social Work Reason for visit: No PCP SW entered room, introduced self and reason for visit. Patient and confirmed no PCP at this time. [facility] provider list given, patient accepting of same. No further needs identified at this time. Laura Haas, HAND WRAPPER OPERATOR, SPECIAL SERVICES SUPERVISOR
== END 2024-08-24 13:16 | disposition home or self-care (01) ==
PROVIDERS: Emergency Provider Emergency Medicine; Visit Provider Emergency Medicine
DX: R07.89 Other chest pain (principal); R10.13 Epigastric pain; Z87.891 Personal history of nicotine dependence
CPT/HCPCS: 71045; 71275; 74176; 80053; 83690; 84484; 85025; 93005; 96361; 96374; 96375; 96376; 99285; Q9967; A4216; J2405